=== PATIENT | female | born 1960 ===

== ENCOUNTER 2019-03-17 13:52 | Emergency (ER) | payer OTHER ==
[~2019-03-17] VITALS: Ht 165.1 cm; Wt 56.7 kg
== END 2019-03-17 20:28 | disposition home or self-care (01) ==
LOC: ER 13:52
DX: S90.112A Contusion of left great toe without damage to nail, initial encounter (principal); W22.8XXA Striking against or struck by other objects, initial encounter; Y93.89 Activity, other specified; Y92.89 Other specified places as the place of occurrence of the external cause; Y99.8 Other external cause status